=== PATIENT | female | born 1995 | race African-American/Black ===

== ENCOUNTER 2023-05-28 02:44 | Emergency (ER) | payer SELFPAY ==
--- NOTE | ~2023-05-28 | XR_ITS ---
Clinical Indication: Cough PA and lateral views of the chest: Comparison: None Findings: The lungs are clear, without evidence of focal consolidation or pleural effusion. Cardiome diastinal silhouette is within normal limits. Bones and soft tissues are unremarkable. Impression: Normal chest. Reviewed, dictated and finalized at location . Impression: Normal chest.
[2023-05-28 03:58] LABS: Strep Group A RT-PCR NOT DETECTED (Negative)
[2023-05-28 04:13] LABS: Influenza A QL RT-PCR Negative (Negative); Influenza B QL RT-PCR Negative (Negative); RSV RNA, RT-PCR Negative (Negative); SARS-CoV-2 RNA PCR Negative (Negative)
--- NOTE | 2023-05-28 04:31 | ED_ITS ---
HPI - General Adult General Chief complaint: Upper Respiratory Infection Stated complaint: sore throat x 2 weeks/lethargy Time Seen by Provider: 05/28/23 03:58 History of Present Illness HPI narrative: Patient is 27-year-old female who presents emergency department chief complaint of upper respiratory symptoms for the last 2 weeks. The patient reports she has had a cough and sore throat reports that she did find some mold in her apartment. The patient reports she is going to talk to her landlord in the morning patient denies fever reports the cough has been nonproductive. Patient reports also her children had similar symptoms. Related Data Allergies Allergy/AdvReac Type Severity Reaction Status Date / Time No Known Allergies Allergy Verified 05/28/23 04:34 Review of Systems Review of Systems: A 10 system review of systems was completed on the patient and is negative except for what is stated in the HPI. Nursing and ancillary documentation was reviewed. Exam Narrative: GENERAL: Well-appearing, well-nourished, and in no acute distress. HEAD: Normocephalic, atraumatic. EYES: PERRLA and EOMI. ENT: Nares clear, no rhinorrhea or epistaxis. Mucous membranes moist. NECK: Supple. CHEST: Clear to auscultation. No respiratory distress. HEART: Regular rate and rhythm. No murmur heard. Normal peripheral pulses. ABDOMEN: Soft, nontender, nondistended, normal active bowel sounds. EXTREMITIES: Normal range of motion. No edema. SKIN: Warm, dry, no rash. NEURO: No focal deficits. Alert and oriented x3. PSYCH: Normal mood and affect. Course Vital Signs Vital signs: Vital Signs Oxygen Delivery Room Air 05/28/23 03:04 Oxygen Delivery Room Air 05/28/23 03:04 Medical Decision Making [facility] Narrative Medical decision making narrative: Differential diagnosis includes COVID 19, influenza, RSV, strep, bronchitis, Chest x-ray showed no focal infiltrate COVID flu and RSV were negative strep was negative. Patient be given a prescription for Tessalon Perles and also given a prescription for a prednisone pulse. Vital Signs Vital Signs: Vital Signs Oxygen Delivery Room Air 05/28/23 03:04 Oxygen Delivery Room Air 05/28/23 03:04 Lab Data Labs: Lab Results 05/28/23 Range/Units 03:29 Influenza A (RT-PCR) Negative (Negative) Influenza B (RT-PCR) Negative (Negative) RSV (RT-PCR) Negative (Negative) SARS-CoV-2 RNA (RT-PCR) Negative (Negative) Group A Strep (PCR) Not detected (Negative) Discharge Plan Discharge Clinical Impression: Upper respiratory infection Patient Disposition: Home, Self-Care Condition: Stable Instructions: Antibiotic Form, Upper Respiratory Infection (ED) Prescriptions: New benzonatate 200 mg capsule 200 mg PO TID PRN (Reason: cough) Qty: 21 0RF prednisone 20 mg tablet 40 mg PO DAILY 5 Days Qty: 10 0RF Follow-up/Referrals: PHYSICIAN NOT ON STAFF,NONSTAFF [Non-Staff] - Jose Holcomb MD [Physician] - Time of Disposition: 04
== END 2023-05-28 05:26 | disposition home or self-care (01) ==
PROVIDERS: Physician Assistant; Emergency Provider Emergency Medicine
DX: J06.9 Acute upper respiratory infection, unspecified (principal); Z20.822 Contact with and (suspected) exposure to COVID-19
CPT/HCPCS: 71046; 87637; 87651; 99283